=== PATIENT | female | born 1995 | race American Indian/Alaskan Native ===

== ENCOUNTER 2021-05-08 22:32 | Emergency (ER) | payer OTHER ==
[2021-05-08] MEDS ORDERED: METAXALONE 800 MG TAB PO ONE (22:43)
[2021-05-08] MEDS ORDERED: IBUPROFEN 600 MG TAB PO ONE (22:43)
[2021-05-08 22:44] VITALS: BP 120/79
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
== END 2021-05-09 00:10 | disposition home or self-care (01) ==
LOC: ED 22:32
DX: S16.1XXA Strain of muscle, fascia and tendon at neck level, initial encounter (principal); R51.9 Headache, unspecified; V87.7XXA Person injured in collision between other specified motor vehicles (traffic), initial encounter; Y93.89 Activity, other specified; Y92.488 Other paved roadways as the place of occurrence of the external cause; Y99.8 Other external cause status
CPT/HCPCS: 99283